=== PATIENT | male | born 1970 | race Caucasian/White ===

== ENCOUNTER 2016-04-29 15:33 | Emergency (ER) | payer SELFPAY ==
[~2016-04-29] VITALS: Ht 167.6 cm; Wt 76.5 kg
[~2016-04-29 15:33] MED LIST: RANI150T9 PO
[2016-04-29 15:40] VITALS: Ht 167.6 cm; Wt 76.5 kg
== END 2016-04-29 18:11 | disposition left against medical advice (07) ==
LOC: FTE 15:33 → E/R 18:11
DX: Z53.21 Procedure and treatment not carried out due to patient leaving prior to being seen by health care provider (principal)

== ENCOUNTER 2018-05-25 11:02 | Emergency (ER) | payer OTHER ==
[~2018-05-25] VITALS: Ht 170.2 cm; Wt 75.3 kg
[~2018-05-25 11:02] MED LIST changes: +IBUP800T48 PO; +LORA-444 PO; +PHEN100C PO; +RANI150T35 PO; -RANI150T9 PO
[2018-05-25 11:17] VITALS: BP 166/72; PULSE 69; RESP 18; Ht 170.2 cm; Wt 75.3 kg
[2018-05-25] MEDS ORDERED: IBUPROFEN 600 MG TAB PO ONE (12:30)
[2018-05-25] MEDS ORDERED: HYDROCODONE/APAP (5/325) TAB PO ONE (12:30)
[2018-05-25] MEDS ORDERED: HYDR-4011 PO (13:59)
[2018-05-25] MEDS ORDERED: IBUP-1542 PO (13:59)
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
== END 2018-05-25 14:20 | disposition home or self-care (01) ==
LOC: FTE 11:02
DX: S49.91XA Unspecified injury of right shoulder and upper arm, initial encounter (principal); R07.9 Chest pain, unspecified; W01.198A Fall on same level from slipping, tripping and stumbling with subsequent striking against other object, initial encounter; Y92.9 Unspecified place or not applicable
CPT/HCPCS: 71045; 73060; 73090; Z7502; Z7610; 93005